=== PATIENT | female | born 1975 | race African-American/Black ===

== ENCOUNTER → 2024-05-16 06:30 | Day surgery (SDC) | payer BC, SELFPAY ==
[2024-05-16 07:48] LABS: Glucose - Point of Care 128 mg/dl (70-99)
== END ==
LOC: GI 06:30
PROVIDERS: ATTENDING PHYSICIAN Internal Medicine Gastroenterology
DX: Z12.11 Encounter for screening for malignant neoplasm of colon (principal); K64.8 Other hemorrhoids; K29.70 Gastritis, unspecified, without bleeding; K21.9 Gastro-esophageal reflux disease without esophagitis
CPT/HCPCS: 45380; 43239; 88305; 82962; 88342

== ENCOUNTER 2025-02-08 22:51 | Emergency (ER) | payer BC, SELFPAY ==
[2025-02-08 22:59] VITALS: BP 150/97; BMI 44.1
[2025-02-08] MEDS: ADRENALIN 0.3 MG IM (23:05)
[2025-02-08] MEDS: PEPCID 20 MG IV (23:06)
[2025-02-08] MEDS: DECADRON 10 MG IV (23:11)
[2025-02-09] VITALS: BP 135/76
--- NOTE | 2025-02-09 00:26 | ED.GENMED ---
History of Present Illness
General
Chief Complaint: Allergic Reaction
Source: patient
Exam Limitations: none
Time Seen by Provider: 02/08/25 22:55
Nursing documentation reviewed up to this point in time: agreed with
History of Present Illness
History of Present Illness:
49-year-old female with a past medical history of hypertension, hyperlipidemia, diabetes, GERD who presents to the emergency department for evaluation of possible allergic reaction. Patient reports that she has a severe peanut allergy. She works
upstairs on the general medical floor and at work today was exposed to [employer] that she believes contained peanut oil. She says that shortly thereafter she felt some difficulty breathing and some itchiness in her throat as well as significant
tightness in the chest and wheezing. She was given albuterol and Benadryl upstairs without improvement and comes to the emergency room now for assessment. She denies any rash or pruritus. She denies any nausea, vomiting, abdominal cramping. She
denies any other complaints.
Past History
Past History
ED Past Medical History: GERD (Omeprazole), HTN (HCTZ), Hypercholesterolemia (Atorvastatin) and NIDDM (takes Metformin)
ED Past Surgical History: Cholecystectomy, Gynecological, Orthopedic and Tonsilectomy
Social History
Tobacco: Non-smoker
Alcohol: Occasional
Personal: Single
Living: with family
Employment: Employed ([employer] )
Review of Systems
Review of Systems
All Other Systems: ROS reviewed and negative except as documented in HPI and ROS
Constitutional: Denies fever
EENT: Reports other
Respiratory: Reports trouble breathing; Denies cough
Cardiac: Reports chest pain
ABD/GI: Denies abdominal pain, nausea or vomiting
Musculoskeletal: Denies neck pain or back pain
Neurological: Denies headache
Psychiatric: Reports anxiety
Phy Exam
Physical Exam
Physical Exam:
General: Awake, alert, oriented x3; anxious.
Head: Normocephalic, atraumatic
Eyes: Conjunctiva normal, EOMI
Throat: Airway intact, handling secretions, no swelling of tongue or uvula, no stridor
Neck: Trachea midline, supple without meningismus
Lungs: Clear to auscultation bilaterally, no wheezing, rales, rhonchi; she is hyperventilating on arrival
Heart: Regular rate and rhythm, no murmurs, gallops, or rubs
Abd: Soft, non distended, nontender
Neuro: No gross deficits
Skin: no rash or hives noted
Extremities: Warm and well-perfused
Scores
Heart Failure Risk
Heart Failure Risk Score: Not Applicable
Heart Score for Chest Pain Patients
STEMI patient?: Not applicable
Withdrawal Assessment of Alcohol
Withdrawal Assessment Completed?: Not applicable
Course
Orders/Labs/Results
Orders:
Orders
02/08/25 22:55
ECG [Electrocardiogram (*1)] Urgent
Reason for Study: Chest Pain
02/08/25 22:56
EKG- Treatment ONCE
02/08/25 23:00
EPINEPHrine PF [Adrenalin] 0.3 mg IM NOW STA
Famotidine [Pepcid] 20 mg IV NOW STA
MethylPREDNISolone PF [Solu-Medrol Pf] 125 mg IV NOW STA
02/08/25 23:09
Dexamethasone Sod Phosphate [Decadron] 10 mg IV NOW STA
02/09/25 00:02
CR Chest Portable - 1 View Urgent
Comment:
Reason For Exam: chest pain
Reason Study Needs to be Portable: Unable to Transport
02/09/25 00:09
Complete Blood Count/With Diff Urgent
Comprehensive Metabolic Panel Urgent
Troponin I Urgent
Abnormal Lab Results
02/09/25
00:09
MPV 11.8 H fL
(7.4-10.4)
Absolute Monos (auto) 0.7 H 10^3/uL
(0.1-0.6)
Glucose 269 H mg/dl
(70-99)
02/09/25 00:09
02/09/25 00:09
Vital Signs
Initial and Last Documented VS:
Initial Vital Signs
Temp Pulse Resp BP Pulse Ox
36.4 C 78 33 150/97 100
02/08/25 22:59 02/08/25 22:59 02/08/25 22:59 02/08/25 22:59 02/08/25 22:59
Last Documented Vital Signs
Temp Pulse Resp BP Pulse Ox
36.4 C 77 20 154/90 98
02/08/25 22:59 02/09/25 02:30 02/09/25 02:30 02/09/25 02:27 02/09/25 02:30
MDM/Problems Addressed
Differential Diagnosis Includes:
Allergic reaction/anaphylaxis, panic attack, asthma
MDM/Problems Addressed:
49-year-old female presents to the ER with concern for possible allergic reaction. She has a severe peanut allergy and was exposed to [employer] which contains peanut oil. She was given albuterol and Benadryl upstairs and transported to the ER.
Vital signs were significant for hypertension; she does have tachypnea but appears to be hyperventilating. She is not hypoxic and is not tachycardic. She has no report of pruritus or hives and no objective rash on exam. She has no GI symptoms.
She does feel short of breath and tightness in the chest however no objective wheezing. She has no signs of swelling of the face or throat but does report some itchiness of the throat. Will plan to give IM epinephrine, steroid, Pepcid. Already
received albuterol upstairs and has no additional wheezing. Already received 50 mg of Benadryl. Will monitor very closely and reassess after the above.
Patient feeling better on reassessment still some significant tightness in the chest however. Itchiness in the throat seems to have improved and she says she is breathing much more comfortably. Lungs sound completely clear clear. Airway remains
patent with no tongue or uvular swelling, no facial swelling. Will send off screening labs and troponin and check chest x-ray in an abundance of caution although it sounds like symptoms are allergic likely residual chest discomfort related to
bronchospasm as well as perhaps some symptoms from epinephrine injection.
Patient feeling much better on reassessment. Vital signs stable. Lungs clear. Will continue to monitor.
Patient looking well, observed for 4 hours without rebound symptoms. Stable for discharge.
Acute Exacerbation and/or Progression of Chronic Illness: HTN
*Radiology
Radiology exam reviewed: preliminary read by ED provider
*Pulse Oximetry
SaO2: 100
Oxygen Mode of Delivery: Room air
Patient hypoxic: no (100%)
*Critical Care Note
Total Time (30-74mins, 75-104mins- exclusive of procedures): Not Applicable
Data Reviewed
Source: patient and records
ED Attending Note
-
Portions of this chart may have been created with voice recognition software.� Occasional wrong word or��sound alike� substitutions may have occurred due to the inherent limitations of voice recognition software.
Discharge Plan
Departure
Patient Disposition: Home (Routine Discharge)
Date of Disposition: 02/09/25
Time of Disposition: 02:47
Patient with high blood pressure during this ER visit?: Yes
Discharge Problem:
Allergic reaction
Instructions: Allergic reaction - ED discharge instructions
Prescriptions:
New
epinephrine [EpiPen 2-Jerry] 0.3 mg/0.3 mL auto-injector
0.3 mg IM ONCE Qty: 2 0RF
Referrals:
UNKNOWN - PT DOES,NOT KNOW [Family Provider]
Activity Restrictions/Additional Instructions:
Thank you for visiting the Emergency Department at [facility].
1. Please schedule a follow up appointment as directed. Call first thing tomorrow morning to make an appointment.
2. If indicated, please take your medications as instructed and indicated on discharge paperwork.
3. If any of your symptoms do not improve, or persist, or become more severe within 6-12 hours, please return to the emergency department for further care.
4. Please return to the emergency department if you develop a headache, neck pain/stiffness, fever greater than 100.4F, chest pain, shortness of breath, persistent nausea, vomiting, slurred speech, difficulty walking, numbness/tingling, weakness,
signs of infection or any other symptoms that are worrisome to you.
Please call [phone] if you have any questions.
Interventions
Interventions:
*Risk Screen - Suicide Last Done: 02/08/25 22:59
*General Assessment Last Done: 02/08/25 22:59
*Neglect/Abuse Screening Last Done: 02/08/25 22:59
*ED- Fall Risk Assessment Last Done: 02/08/25 22:59
*ED COVID-19 Vaccine History Last Done: 02/08/25 22:59
ED- Cardiac Assessment Last Done: 02/08/25 23:28
ED- Pulmonary Assessment Last Done: 02/08/25 23:28
ED-Skin Assessment Last Done: 02/08/25 23:50
Discharge Date and Time
Print Language: CYPRIOT
[2025-02-09 00:31] LABS: ALT (SGPT) 27 U/L (0-35); AST (SGOT) 24 U/L (14-36); Albumin 4.7 g/dl (3.5-5.0); Alkaline Phosphatase 80 U/L (38-126); Blood Urea Nitrogen 10 mg/dl (7-17); Calcium 9.9 mg/dl (8.4-10.2); Carbon Dioxide 23 mmol/L (22-30); Chloride 105 mmol/L (98-107); Estimated Creatinine Clearance > 125 ml/min; Glucose 269 mg/dl (70-99); Potassium 4.0 mmol/L (3.5-5.1); Sodium 139 mmol/L (135-145); Total Protein 7.8 g/dl (6.3-8.2); eGFR > 60.00
[2025-02-09 00:43] LABS: Troponin I < 0.012 ng/ml
[2025-02-09 00:51] LABS: Hematocrit 45.1 % (37.0-47.0); Hemoglobin 15.1 g/dL (12.0-16.0); Mean Corp Hgb Conc. 33.5 g/dL (33.0-37.0); Mean Corpuscular Volume 90.2 fL (81.0-99.0); Nucleated Red Blood Cells % 0 %; Platelet Count 274 10^3/uL (130-400); Red Cell Dist. Width 13.4 % (11.5-14.5)
[2025-02-09 01:00] VITALS: BP 155/94
[2025-02-09 02:27] VITALS: BP 154/90
== END 2025-02-09 03:00 | disposition home or self-care (01) ==
LOC: EMR 22:51
PROVIDERS: EMERGENCY PHYSICIAN Emergency Medicine
DX: T78.1XXA Other adverse food reactions, not elsewhere classified, initial encounter (principal); R06.00 Dyspnea, unspecified; X58.XXXA Exposure to other specified factors, initial encounter; Z91.010 Allergy to peanuts; E11.9 Type 2 diabetes mellitus without complications; E78.00 Pure hypercholesterolemia, unspecified; I10 Essential (primary) hypertension; Z79.899 Other long term (current) drug therapy
CPT/HCPCS: 96374; 96375; 96372; 99284; 71045; 80053; 84484; 85025; 93005

== ENCOUNTER 2025-04-16 20:32 | Emergency (ER) | payer BC, SELFPAY ==
[2025-04-16 20:35] VITALS: BP 162/116
[2025-04-16 20:45] VITALS: BP 136/96
[2025-04-16 21:00] VITALS: BP 141/99
--- NOTE | 2025-04-16 21:06 | ED.GENMED ---
History of Present Illness
General
Chief Complaint: Allergic Reaction
Source: patient
Exam Limitations: none
Time Seen by Provider: 04/16/25 21:00
History of Present Illness
History of Present Illness:
See MDM
Past History
Past History
ED Past Medical History: GERD (Omeprazole), HTN (HCTZ), Hypercholesterolemia (Atorvastatin) and NIDDM (takes Metformin)
ED Past Surgical History: Cholecystectomy, Gynecological, Orthopedic and Tonsilectomy
Social History
Tobacco: Non-smoker
Alcohol: Occasional
Personal: Single
Living: with family
Employment: Employed ([employer] )
Phy Exam
Physical Exam
Physical Exam:
See MDM
Course
Orders/Labs/Results
Orders:
Orders
04/16/25 21:05
Dexamethasone Pf [Decadron] 10 mg PO NOW STA
Diphenhydramine [Benadryl] 25 mg PO NOW STA
Famotidine [Pepcid] 20 mg PO NOW STA
Vital Signs
Initial and Last Documented VS:
Initial Vital Signs
Temp Pulse Resp BP Pulse Ox
98.0 F 80 20 162/116 99
04/16/25 20:35 04/16/25 20:35 04/16/25 20:35 04/16/25 20:35 04/16/25 20:35
Last Documented Vital Signs
Temp Pulse Resp BP Pulse Ox
98.0 F 80 20 109/79 97
04/16/25 20:35 04/16/25 20:35 04/16/25 20:35 04/16/25 22:00 04/16/25 22:45
MDM/Problems Addressed
Differential Diagnosis Includes:
Note:
CHIEF COMPLAINT(S)
Allergic reaction to peanuts.
HISTORY OF PRESENT ILLNESS
The patient is a 50-year-old female with a known severe allergy to peanuts. She reports experiencing an allergic reaction after smelling peanuts while at work. The patient described sudden difficulty breathing with nasal congestion and a sensation
of panic in her heart. She reports a history of using Benadryl for mild reactions, but in this instance, the reaction was severe. The patient used her EpiPen upon arrival at the facility due to progressive symptoms. She mentioned an escalation in
sensitivity over the last decade, now triggered by merely the scent of peanuts. The patient has a documented episode from years ago where exposure led to hospitalization. Additionally, she mentioned a history of being provided an inhaler for
bronchitis, although she does not have asthma.
PAST MEDICAL AND SURGICAL HISTORY
Chronic bronchitis. No history of diabetes.
CHRONIC MEDICAL CONDITIONS SIGNIFICANTLY AFFECTING CARE
Chronic bronchitis.
ALLERGIES
Severe allergy to peanuts, with anaphylactic reactions triggered both by ingestion and inhalation.
REVIEW OF SYSTEMS
- Respiratory: Difficulty breathing, nasal congestion.
- Cardiovascular: Sensation of panic.
- Immunological: Severe allergic reaction to peanuts, EpiPen administration, and history of severe reactions.
PHYSICAL EXAM
General: Alert, no acute distress.
Skin: Warm, dry.
Head: Normocephalic, atraumatic
Neck: Appears supple, trachea midline.
Eyes, Ears, Nose, Mouth, and Throat: Oral mucosa moist. Posterior pharynx clear
Cardiovascular: No signs of cyanosis
Respiratory: Respirations are non-labored.
Abdomen: Non-distended
Musculoskeletal: No deformities
Neurological: No focal neurological deficit observed.
Psychiatric: Cooperative, appropriate mood and affect.
PLAN
- Monitor the patient closely for any progression of allergic symptoms.
- Administer necessary medications, including steroids as tolerated, to manage the allergic reaction.
- Educate the patient on the importance of carrying an EpiPen at all times and ensure prescriptions are up to date.
DIFFERENTIAL DIAGNOSIS
The Differential Diagnosis includes, in no particular order and is not limited to:
1. Anaphylaxis
2. Allergic rhinitis
3. Asthma
4. Bronchospastic disease
5. Panic attack
6. Vasovagal episode
7. Food allergy (other than peanuts)
8. Environmental allergies
9. Hypersensitivity pneumonitis
10. Angioedema
SUMMARY OF ENCOUNTER
The patient, a 50-year-old female, was seen in the emergency department due to an allergic reaction triggered by the scent of peanuts. She utilized her EpiPen upon arrival due to severe symptoms, which included difficulty breathing and nasal
congestion. The patient was under observation and her condition improved with no evidence of anaphylaxis.
DISPOSITION
Discharged.
PLAN
- Prescribe a short course of steroids to manage any residual allergic symptoms.
- Ensure the patient receives another prescription for an EpiPen.
- Advise the patient to follow up with primary care.
- Fruit Packer Face And Fill the patient on strict avoidance of peanuts and nuts in general.
PATIENT EDUCATION AND COUNSELING
The patient was educated on the importance of adhering to avoidance of peanuts and nuts. The necessity of carrying an EpiPen at all times was emphasized.
FOLLOW-UP INSTRUCTIONS
Follow-up with primary care physician as discussed.
MEDICATION RECONCILIATION
- Prescribed a short course of oral steroids.
- Prescribed a replacement EpiPen.
MEDICAL DECISION MAKING
- Number and Complexity of Problems Addressed: Chronic conditions affecting care include chronic bronchitis. Differential Diagnosis includes anaphylaxis, allergic rhinitis, food allergy (peanuts), and bronchospastic disease due to chronic bronchitis.
- Risk: Prescription medication management is indicated with oral steroids and EpiPen. Consideration of Admission/Observation: Escalation of care including admission/observation was considered given the complexity and risk of the patients presenting
complaint. However, ultimately I feel the patient is safe for outpatient management with close follow-up. Reasoning: Work-up reassuring, does not reveal any acute life/organ-threatening processes, patients symptoms well controlled upon reevaluation,
reexamination is reassuring, vitals are stable, patient agreeable with discharge, reliable for follow-up.
DIAGNOSIS
- Severe allergic reaction secondary to peanut exposure, ICD-10 T78.05XA.
- History of chronic bronchitis, ICD-10 J42.
*Pulse Oximetry
SaO2: 99
Oxygen Mode of Delivery: Room air
Patient hypoxic: no
*Critical Care Note
Total Time (30-74mins, 75-104mins- exclusive of procedures): Not Applicable
ED Attending Note
-
Portions of this chart may have been created with voice recognition software.� Occasional wrong word or��sound alike� substitutions may have occurred due to the inherent limitations of voice recognition software.
Discharge Plan
Departure
Patient Disposition: Home (Routine Discharge)
Date of Disposition: 04/17/25
Time of Disposition: 00:06
Patient with high blood pressure during this ER visit?: No
Discharge Problem:
Allergic reaction
Instructions: Allergic reaction - ED (DC)
Prescriptions:
New
prednisone 20 mg tablet
40 mg PO DAILY Qty: 10 0RF
epinephrine [EpiPen 2-Jerry] 0.3 mg/0.3 mL auto-injector
0.3 mg IM ONCE Qty: 2 0RF
No Action
epinephrine [EpiPen 2-Jerry] 0.3 mg/0.3 mL auto-injector
0.3 mg IM ONCE Qty: 2 0RF
Referrals:
UNKNOWN - PT DOES,NOT KNOW [Family Provider]
Stand Alone Forms: Return to Work
Activity Restrictions/Additional Instructions:
Please return for any worsening symptoms.
You may return at any time if you have further concerns.
Please follow up with your doctor at the first available appointment, preferably this week.
Thank you for choosing [facility].
Interventions
Interventions:
*Risk Screen - Suicide Last Done: 04/16/25 21:29
*General Assessment Last Done: 04/16/25 20:35
*Neglect/Abuse Screening Last Done: 04/16/25 20:55
*ED- Fall Risk Assessment Last Done: 04/16/25 20:55
*ED COVID-19 Vaccine History Last Done: 04/16/25 20:55
ED- Cardiac Assessment Last Done: 04/16/25 20:56
ED- Pulmonary Assessment Last Done: 04/16/25 20:56
ED-Skin Assessment Last Done: 04/16/25 20:56
Discharge Date and Time
Print Language: SENEGALESE
[2025-04-16] MEDS: DECADRON 10 MG PO (21:23)
[2025-04-16] MEDS: BENADRYL 25 MG PO (21:23)
[2025-04-16] MEDS: PEPCID 20 MG PO (21:23)
[2025-04-16 22:00] VITALS: BP 109/79
[2025-04-16 23:00] VITALS: BP 108/70
[2025-04-17] VITALS: BP 130/97
== END 2025-04-17 00:26 | disposition home or self-care (01) ==
LOC: EMR 20:32
PROVIDERS: EMERGENCY PHYSICIAN Student in an Organized Health Care Education/Training Program
DX: T78.1XXA Other adverse food reactions, not elsewhere classified, initial encounter (principal); Y92.9 Unspecified place or not applicable; K21.9 Gastro-esophageal reflux disease without esophagitis; I10 Essential (primary) hypertension; E78.00 Pure hypercholesterolemia, unspecified; E11.9 Type 2 diabetes mellitus without complications; Z90.49 Acquired absence of other specified parts of digestive tract; Z91.010 Allergy to peanuts
CPT/HCPCS: 99282